=== PATIENT | male | born 1955 | race Caucasian/White ===

== ENCOUNTER 2020-10-09 15:09 | Outpatient (CLI) | payer MEDICARE, SELFPAY ==
--- NOTE | ~2020-10-09 | XR_ITS ---
EXAMINATION: XR chest 2V DATE: 10/09/2020 15:38 INDICATION: Acute bronchitis. COPD . TECHNIQUE: PA and lateral views of the chest were obtained. COMPARISON: Chest radiograph dated 07/26/2020 FINDINGS: Mild hyperexpansion of the lungs with flattening of the diaphragm consistent with given history of CO PD. Chronic mildly prominent right paracardial fat pad at the anterior right lung base. No airspace o pacities, pulmonary edema, pleural effusion or pneumothorax. Cardiomediastinal silhouette is normal. Tortuous thoracic aorta. Moderate thoracic spondylosis. IMPRESSION: 1. Mildly hyperexpanded lungs consistent with given history of COPD. No acute cardiopulmonary disease . Reviewed, dictated and finalized at location A. [employer] IMPRESSION: 1. Mildly hyperexpanded lungs consistent with given history of COPD. No acute c ardiopulmonary disease.
== END 2020-10-09 15:10 | disposition home or self-care (01) ==
LOC: ANHIMG 15:12
PROVIDERS: PCP Emergency Medicine; Visit Provider Emergency Medicine
DX: J20.9 Acute bronchitis, unspecified (principal)
CPT/HCPCS: 71046